=== PATIENT | female | born 1960 | race Caucasian/White ===

== ENCOUNTER 2017-03-16 18:37 | Emergency (ER) | payer OTHER ==
[~2017-03-16] VITALS: Ht 160 cm; Wt 63.5 kg
--- NOTE | 2017-03-16 18:38 | Emergency Room Report ---
History of Present Illness General Chief Complaint: Alcohol Intoxication Source: Patient Present Illness HPI Patient presents with vomiting dizziness and weakness after drinking vodka from wine glasses. She is not used to drinking vodka this way. She's not vomiting blood. She denies any pain in her stomach. Paramedics were summoned. No treatment was instituted. She woke up and was dizzy with world spinning, vomiting, and legs weak and with tremor. She denies BEE. She's never had seizures. No lingual or other trauma. No tinnitus. Worse when eyes open. No fevers, URI sy, chest pain. No rashes. No dysuria. Post menopausal. She states she was sober for 2 weeks, 2 weeks ago. She is a bit stressed having to travel to [place] to perform tomorrow night. Allergies: Coded Allergies: PENICILLINS (Verified Allergy, Unknown, 03/16/17) Patient History Past Medical History: see triage record Social History: Reports: alcohol use, drug use - THC, smoking Social History Narrative songwriter Reviewed Nursing Documentation: PMH: Agreed, PSxH: Agreed Nursing Documentation-PM Past Medical History: No Stated History Review of Systems All Other Systems: negative except mentioned in HPI Physical Exam Vital Signs Date Time Temp Pulse Resp B/P Pulse Ox O2 Delivery O2 Flow Rate FiO2 03/16/17 18:33 97.5 90 16 115/76 97 Room Air Sp02 EP Interpretation: reviewed, normal General Appearance: well appearing, GCS 15, mild distress Head: normocephalic Eyes: bilateral eye PERRL, bilateral eye Scleral Injection ENT: moist mucus membranes Neck: supple Respiratory: lungs clear, normal breath sounds Cardiovascular #1: regular rate, rhythm Cardiovascular #2: 2+ radial (R) Gastrointestinal: normal inspection, normal bowel sounds, non tender, no mass, non-distended Musculoskeletal: back normal, gait/station normal, normal range of motion Neurologic: alert, oriented x3, motor strength/tone normal, DTRs symmetric, sensory intact, speech normal Psychiatric: no suicidal/homicidal ideation, anxious Skin: warm/dry, other - telangectasias Medical Decision Making Diagnostic Impression: Primary Impression: Alcohol toxicity Additional Impression: Weakness with vertigo ER Course The patient presents with vomiting after ingesting alcohol. Differential includes alcoholic gastritis, alcohol intoxication, alcohol toxicity, electrolyte imbalance, pancreatitis, acute myocardial infarction, labyrinthitis , vertigo, hyperventilation, seizure amongst others. The patient will undergo evaluation with EKG and labs. Consideration for CT head if symptoms persist. The patient will get IV hydration, Zofran, Pepcid and thiamine. She will be observed on cardiac technologist. Labs significant for + BA, THC, elevated MCV, LFTs. Patient improved. Naz PO. Stable gait without tremor. Uncertain etiology of event. I suggested observation in hospital. She states she feels better and wants to go home. She has a show in [employer] tomorrow night. Discussed need for someone trustworthy to observe. Patient stable for outpatient observation and treatment. Laboratory Tests Test 03/16/17 19:30 03/16/17 19:50 White Blood Count 7.8 K/UL (4.8-10.8) Red Blood Count 3.83 M/UL (4.20-5.40) L Hemoglobin 14.6 G/DL (12.0-16.0) Hematocrit 41.6 % (37.0-47.0) Mean Corpuscular Volume 109 FL (80-99) H Mean Corpuscular Hemoglobin 38.0 PG (27.0-31.0) H Mean Corpuscular Hemoglobin Concent 35.0 G/DL (32.0-36.0) Red Cell Distribution Width 12.2 % (11.6-14.8) Platelet Count 177 K/UL (150-450) Mean Platelet Volume 6.6 FL (6.5-10.1) Neutrophils (%) (Auto) 89.7 % (45.0-75.0) H Lymphocytes (%) (Auto) 4.6 % (20.0-45.0) L Monocytes (%) (Auto) 4.4 % (1.0-10.0) Eosinophils (%) (Auto) 0.0 % (0.0-3.0) Basophils (%) (Auto) 1.4 % (0.0-2.0) Prothrombin Time 9.6 SEC (9.30-11.50) Prothrombin Time INR 0.9 (0.9-1.1) PTT 22 SEC (23-33) L Sodium Level 144 mEQ/L (135-145) Potassium Level 5.1 mEQ/L (3.4-4.9) H Chloride Level 102 mEQ/L (98-107) Carbon Dioxide Level 21 mEQ/L (20-30) Anion Gap 21 (5-15) H Blood Urea Nitrogen 11 mg/dL (7-23) Creatinine 0.5 mg/dL (0.5-0.9) Estimate Glomerular Filtration Rate > 60 mL/min (>60) Glucose Level 113 mg/dL (74-106) H Calcium Level 9.3 mg/dL (8.6-10.2) Total Bilirubin 0.4 mg/dL (0.0-1.2) Aspartate Amino Transferase (AST) 225 U/L (5-40) H Alanine Aminotransferase (ALT) 172 U/L (3-33) H Alkaline Phosphatase 71 U/L (35-104) Troponin I < 0.30 ng/mL (<=0.30) Total Protein 7.3 g/dL (6.6-8.7) Albumin 4.3 g/dL (3.5-5.2) Globulin 3.0 g/dL Albumin/Globulin Ratio 1.4 (1.0-2.7) Lipase 21 U/L (< 60) Serum Alcohol 42 mg/dL Urine Color Pale yellow Urine Appearance Clear Urine pH 6 (4.5-8.0) Urine Specific [place] 1.020 (1.005-1.035) Urine Protein 2+ (NEGATIVE) H Urine Glucose (UA) Negative (NEGATIVE) Urine Ketones 2+ (NEGATIVE) H Urine Occult Blood Negative (NEGATIVE) Urine Nitrite Negative (NEGATIVE) Urine Bilirubin Negative (NEGATIVE) Urine Urobilinogen Normal MG/DL (0.0-1.0) Urine Leukocyte Esterase Negative (NEGATIVE) Urine RBC 0-2 /HPF (0 - 2) Urine WBC 0-2 /HPF (0 - 2) Urine Squamous Epithelial Cells Occasional /LPF Urine Amorphous Sediment Many /LPF (NONE) H Urine Bacteria None /HPF (NONE) Urine Opiates Screen Negative (NEGATIVE) Urine Barbiturates Screen Negative (NEGATIVE) Phencyclidine (PCP) Screen Negative (NEGATIVE) Urine Amphetamines Screen Negative (NEGATIVE) Urine Benzodiazepines Screen Negative (NEGATIVE) Urine Cocaine Screen Negative (NEGATIVE) Urine Marijuana (THC) Screen Positive (NEGATIVE) H EKG Diagnostic Results Rate: normal Rhythm: NSR ST Segments: no acute changes Rhythm Strip Diag. Results EP Interpretation: yes Rhythm: NSR, no PVC's, no ectopy Last Vital Signs Date Time Temp Pulse Resp B/P Pulse Ox O2 Delivery O2 Flow Rate FiO2 03/16/17 22:06 82 13 115/66 98 Room Air 03/16/17 20:16 97.3 Status: improved Disposition: HOME, SELF-CARE Condition: Improved Scripts Ondansetron Odt* (ZOFRAN ODT*) 4 Mg Tab.rapdis 4 MG ORAL Q8HR Y for Nausea & Vomiting, #6 TAB 0 Refills Prov: Kd Lea M.D. 03/16/17 Chlordiazepoxide Hcl* (LIBRIUM*) 10 Mg Capsule 10 MG ORAL THREE TIMES A DAY Y for withdrawal, anxiety or SOB, #8 CAP 0 Refills Prov: Kd Lea M.D. 03/16/17 Kd Lea M.D. March 16, 2017 18:38
[2017-03-16] MEDS ORDERED: NKM (18:40)
[2017-03-16] MEDS ORDERED: Thiamine HCl 100 MG in D5W 55 ML IVPB SCH (18:45)
[2017-03-16] MEDS ORDERED: Famotidine 20 MG/ 2ML VIAL IVP ONE (18:45)
[2017-03-16 18:48] VITALS: BP 118/78
[2017-03-16] MEDS ORDERED: Tubing IV Cassette IV ONE (19:23)
[2017-03-16] MEDS ORDERED: Thiamine HCl 100mg/ml Inj ONE (19:23)
[2017-03-16 19:48] LABS: LYMPHOCYTES % (AUTO) 4.6 % (20.0-45.0); MEAN CORPUSCULAR VOLUME 109 FL (80-99); MEAN PLATELET VOLUME 6.6 FL (6.5-10.1); MONOCYTES % (AUTO) 4.4 % (1.0-10.0); NEUTROPHILS % (AUTO) 89.7 % (45.0-75.0); PLATELET COUNT 177 K/UL (150-450); RED BLOOD COUNT 3.83 M/UL (4.20-5.40); RED CELL DISTRIBUTION WIDTH 12.2 % (11.6-14.8); WHITE BLOOD COUNT 7.8 K/UL (4.8-10.8)
[2017-03-16 19:49] LABS: BASOPHILS % (AUTO) 1.4 % (0.0-2.0)
[2017-03-16 20:00] LABS: INR 0.9 (0.9-1.1); PROTHROMBIN TIME 9.6 SEC (9.30-11.50)
[2017-03-16 20:05] LABS: APPEARANCE,URINE CLEAR; KETONES,URINE 2+ (NEGATIVE); LEUKOCYTE ESTERASE ,URINE NEGATIVE (NEGATIVE); NITRITE,URINE NEGATIVE (NEGATIVE); PH,URINE 6 (4.5-8.0); PROTEIN,URINE 2+ (NEGATIVE); UROBILINOGEN,URINE NORMAL MG/DL (0.0-1.0)
[2017-03-16 20:05] LABS: TROPONIN I < 0.30 ng/mL (<=0.30)
[2017-03-16 20:08] LABS: ALANINE AMINOTRANSFERASE 172 U/L (3-33); ALBUMIN/GLOBULIN RATIO 1.4 (1.0-2.7); ALCOHOL 42 mg/dL; ANION GAP 21 (5-15); ASPARTATE AMINO TRANSFERASE 225 U/L (5-40); CALCIUM 9.3 mg/dL (8.6-10.2); CARBON DIOXIDE 21 mEQ/L (20-30); CHLORIDE 102 mEQ/L (98-107); CREATININE 0.5 mg/dL (0.5-0.9); GLOMERULAR FILTRATION RATE > 60 mL/min (>60); HEMOLYSIS 200; LIPASE 21 U/L (< 60); POTASSIUM 5.1 mEQ/L (3.4-4.9); SODIUM 144 mEQ/L (135-145); TOTAL PROTEIN 7.3 g/dL (6.6-8.7)
[2017-03-16 20:16] VITALS: BP 106/70
[2017-03-16 20:43] LABS: RBC,URINE 0-2 /HPF (0 - 2)
[2017-03-16 20:44] LABS: WBC,URINE 0-2 /HPF (0 - 2)
[2017-03-16 20:52] LABS: SQUAMOUS EPITHELIAL CELL,UR OCCASIONAL /LPF (NONE/OCC)
[2017-03-16 20:53] LABS: AMORPHOUS SEDIMENT,UR MANY /LPF
[2017-03-16] MEDS ORDERED: ZOFRAN ODT4 MG ORAL (21:22)
[2017-03-16] MEDS ORDERED: LIBRIUM10 MG ORAL (21:22)
[2017-03-16 22:03] VITALS: BP 115/66
[2017-03-16 22:06] VITALS: BP 115/66
--- NOTE | 2017-03-17 17:32 | Cardiology Report ---
APPROVED REPORT EKG Measurement Heart [id number] Normal sinus rhythm Cannot rule out Anterior infarct, age undetermined Abnormal ECG
== END 2017-03-16 22:08 | disposition home or self-care (01) ==
LOC: EDBD 18:37 → EMR 18:57
DX: F10.129 Alcohol abuse with intoxication, unspecified (principal); R53.1 Weakness; R42 Dizziness and giddiness
CPT/HCPCS: 36415; 80053; 80300; 81003; 83690; 84484; 85025; 85610; 85730; 93005; 96360; 96361; 96374; 96375; 99284; G0480; J2405; S0028; 80329